=== PATIENT | male | born 1980 | race Caucasian/White ===

== ENCOUNTER 2018-01-04 17:54 | Emergency (ER) | payer BC, SELFPAY ==
[2018-01-04] MEDS ORDERED: FENTANYL CITR 100 MCG/2 ML ONE (18:19)
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
--- NOTE | 2018-01-04 20:34 | RAD REPORT ---
EXAM DESCRIPTION: [place] (2 Views)01/04/2018 6:41 pm CLINICAL HISTORY: Chest pain COMPARISON: None FINDINGS: The lungs appear clear of acute infiltrate. The heart is normal size IMPRESSION: No acute abnormalities displayed
== END 2018-01-04 20:12 | disposition home or self-care (01) ==
LOC: ER 17:54
DX: S40.012A Contusion of left shoulder, initial encounter (principal); V43.52XA Car driver injured in collision with other type car in traffic accident, initial encounter
CPT/HCPCS: 70450; 71046; 72125; 96374; 99285; J3010

== ENCOUNTER 2019-07-12 18:25 | Emergency (ER) | payer BC, SELFPAY ==
[2019-07-12 19:06] LABS: Absolute Lymphocytes (CBC) 2.3 K/uL (0.7-4.9); Basophils % 0.8 % (0-1.3); Hematocrit 45.1 % (39.6-49.0); Lymphocytes % 27.4 % (15.3-44.8); RBC Red Blood Cell Count 5.56 M/uL (4.33-5.43)
--- NOTE | 2019-07-12 19:07 | RAD REPORT ---
EXAM DESCRIPTION: RAD - Chest Single View - 07/12/2019 7:00 pm CLINICAL HISTORY: CHEST PAIN Chest pain. COMPARISON: Chest Pa And Lat (2 Views) dated 01/04/2018 FINDINGS: Portable technique limits examination quality. The lungs are grossly clear. The heart is normal in size. No displaced fractures. IMPRESSION: No acute intrathoracic process suspected.
[2019-07-12 19:08] LABS: Protime INR 1.05
[2019-07-12] MEDS ORDERED: LORazepam 2 MG/ML VIAL ONE (19:15)
[2019-07-12 19:25] LABS: ALT/SGPT 54 U/L (12-78); AST/SGOT 25 U/L (15-37); Albumin 3.9 g/dL (3.4-5.0); Alkaline Phosphatase 86 U/L (45-117); BUN Blood Urea Nitrogen 15 mg/dL (7-18); Bicarbonate 26 mmol/L (21-32); Bilirubin Direct 0.1 mg/dL (0-0.2); Bilirubin Total 0.4 mg/dL (0.2-1.0); Glucose Level 136 mg/dL (74-106); NT PRO-BNP 22 pg/mL (<125); Protein, Total 7.5 g/dL (6.4-8.2); Sodium Level 138 mmol/L (136-145); Troponin (Emerg Dept Use Only) < 0.02 ng/mL (0.0-0.045)
--- NOTE | 2019-07-12 20:43 | EDPHYS ---
Physician Documentation [facility] Name: Antony Holley Age: 39 yrs Sex: Male : 1980 Arrival Date: 07/12/2019 Time: 18:33 Bed 6 Private MD: ED Physician Shahram Mercado HPI: 07/11 19:20 This 39 yrs old Male presents to ER via Ambulatory with complaints of jr8 Breathing Difficulty, Chest Tightness. 19:20 The patient has shortness of breath at rest. Onset: The symptoms/episode began/occurred jr8 acutely, today. Duration: The symptoms are continuous. The patient's shortness of breath has no apparent modifying factors. Associated signs and symptoms: Pertinent positives: chest pain, numbness in extremities. Severity of symptoms: At their worst the symptoms were moderate in the emergency department the symptoms are unchanged. The patient has experienced a previous episode. The patient has not recently seen a physician. Stated that yesterday he had period of shortness of breath, numbness, and chest tightness yesterday. Went away after a few hours. Stated that it happened again today. Stated that he has been on Adderall and wonders if it could be that. Historical: - Allergies: 18:39 No Known Allergies; ss - Home Meds: 18:39 Adderall XR Oral [Active]; ss - PSHx: 18:39 None; ss - Immunization history:: Adult Immunizations up to date. - Social history:: Smoking status: Patient denies any tobacco usage or history of. ROS: 19:20 Eyes: Negative for injury, pain, redness, and discharge, ENT: Negative for injury, jr8 pain, and discharge, Neck: Negative for injury, pain, and swelling, Abdomen/GI: Negative for abdominal pain, nausea, vomiting, diarrhea, and constipation, Back: Negative for injury and pain, MS/Extremity: Negative for injury and deformity, Skin: Negative for injury, rash, and discoloration. 19:20 Cardiovascular: Positive for chest pain, Negative for edema, orthopnea, palpitations, paroxysmal nocturnal dyspnea. 19:20 Respiratory: Positive for shortness of breath. 19:20 Neuro: Positive for numbness, of the right hand, left hand, right foot and left foot. Exam: 19:20 Eyes: Pupils equal round and reactive to light, extra-ocular motions intact. Lids and jr8 lashes normal. Conjunctiva and sclera are non-icteric and not injected. Cornea within normal limits. Periorbital areas with no swelling, redness, or edema. ENT: Nares patent. No nasal discharge, no septal abnormalities noted. Tympanic membranes are normal and external auditory canals are clear. Oropharynx with no redness, swelling, or masses, exudates, or evidence of obstruction, uvula midline. Mucous membranes moist. Neck: Trachea midline, no thyromegaly or masses palpated, and no cervical lymphadenopathy. Supple, full range of motion without nuchal rigidity, or vertebral point tenderness. No Meningismus. Cardiovascular: Regular rate and rhythm with a normal S1 and S2. No gallops, murmurs, or rubs. Normal PMI, no JVD. No pulse deficits. Respiratory: Lungs have equal breath sounds bilaterally, clear to auscultation and percussion. No rales, rhonchi or wheezes noted. No increased work of breathing, no retractions or nasal flaring. Abdomen/GI: Soft, non-tender, with normal bowel sounds. No distension or tympany. No guarding or rebound. No evidence of tenderness throughout. Back: No spinal tenderness. No costovertebral tenderness. Full range of motion. Skin: Warm, dry with normal turgor. Normal color with no rashes, no lesions, and no evidence of cellulitis. MS/ Extremity: Pulses equal, no cyanosis. Neurovascular intact. Full, normal range of motion. Neuro: Awake and alert, GCS 15, oriented to person, place, time, and situation. Cranial nerves II-XII grossly intact. Motor strength 5/5 in all extremities. Sensory grossly intact. Cerebellar exam normal. Normal gait. 19:39 ECG was reviewed by the Attending Physician. jr8 Vital Signs: 18:37 BP 134 / 94; Pulse 97; Resp 20; Temp 97.1(TE); Pulse Ox 100% on R/A; Weight 97.52 kg; ss Height 6 ft. 2 in. (187.96 cm); Pain 4/10; 19:52 BP 127 / 92; Pulse 83; Resp 18; Pulse Ox 100% ; ea 20:30 BP 132 / 91; Pulse 73; Resp 21; Pulse Ox 100% ; ah 18:37 Body Mass Index 27.60 (97.52 kg, 187.96 cm) ss MDM: 18:35 Patient medically screened. 8 20:41 Data reviewed: vital signs, nurses notes, lab test result(s), EKG, radiologic studies, jr8 plain films. Data interpreted: Pulse oximetry: on room air is 100 %. Interpretation: normal. Counseling: I had a detailed discussion with the patient and/or guardian regarding: the historical points, exam findings, and any diagnostic results supporting the discharge/admit diagnosis, lab results, radiology results, the need for outpatient follow up, a family practitioner, to return to the emergency department if symptoms worsen or persist or if there are any questions or concerns that arise at home. Special discussion: Based on the patient's history, exam, and Dx evaluation, there is no indication for emergent intervention or inpatient Tx. It is understood by the patient/guardian that if the Sx's persist or worsen they need to return immediately for re-evaluation. 07/11 18:34 Order name: Basic Metabolic Panel; Complete Time: 19:39 07/11 18:34 Order name: CBC with Diff; Complete Time: 19:16 07/11 18:34 Order name: LFT's; Complete Time: 19:39 07/11 18:34 Order name: Magnesium; Complete Time: 19:39 07/11 18:34 Order name: NT PRO-BNP; Complete Time: 19:39 07/11 18:34 Order name: PT-INR; Complete Time: 19:16 07/11 18:34 Order name: Troponin (emerg Dept Use Only); Complete Time: 19:39 07/11 18:34 Order name: XRAY Chest (1 view); Complete Time: 19:16 07/11 18:34 Order name: EKG; Complete Time: 18:36 07/11 18:34 Order name: Cardiac monitoring; Complete Time: 18:42 07/11 18:34 Order name: EKG - Nurse/Tech; Complete Time: 18:42 07/11 18:34 Order name: IV Saline Lock; Complete Time: 18:49 07/11 20:06 Order name: Troponin (emerg Dept Use Only); Complete Time: 20:41 07/11 18:34 Order name: Labs collected and sent; Complete Time: 18:49 jr8 07/11 18:35 Order name: O2 Per Protocol; Complete Time: 18:42 jr8 07/11 18:35 Order name: O2 Sat Monitoring; Complete Time: 18:42 jr8 EC:39 Rate is 87 beats/min. Rhythm is regular, Normal Sinus Rhythm. QRS [place] is Normal. LA jr8 interval is normal at 128 msec. QRS interval is normal at 88 msec. QT interval is normal at 450 msec. No Q waves. T waves are Normal. No ST changes noted. Clinical impression: Normal ECG. Interpreted by me. Reviewed by me. Administered Medications: 19:15 Drug: Ativan 1 mg Route: IVP; Site: right antecubital; ea 20:15 Follow up: Response: No adverse reaction; Anxiety decreased; RASS: Alert and Calm (0) ah Disposition: 07/12/19 20:42 Discharged to Home. Impression: Shortness of breath, Chest pain, unspecified. - Condition is Stable. - Discharge Instructions: Nonspecific Chest Pain, Shortness of Breath. - Medication Reconciliation Form, Thank You Letter, Antibiotic Education, Prescription Opioid Use form. - Follow up: Private Physician; When: 1 - 2 days; Reason: Recheck today's complaints, Continuance of care, Re-evaluation by your physician. - Problem is new. - Symptoms have improved. Addendum: 07/20/2019 06:52 Co-signature as Attending Physician, Shahram Mercado MD. m a2 Signatures: Dispatcher [employer] EDAZ Loni Lorenzo RN RN ss Roszak, Josh, PA PA jr8 Abby Andrea RN RN ea Alzahri, Mohammad, MD MD id2 Rosemarie Vizcaino RN RN Corrections: (The following items were deleted from the chart) 07/11 20:55 20:42 07/12/2019 20:42 Discharged to Home. Impression: Shortness of breath; Chest pain, ah unspecified. Condition is Stable. Forms are Medication Reconciliation Form, Thank You Letter, Antibiotic Education, Prescription Opioid Use. Follow up: Private Physician; When: 1 - 2 days; Reason: Recheck today's complaints, Continuance of care, Re-evaluation by your physician. Problem is new. Symptoms have improved. jr8
--- NOTE | 2019-07-12 20:43 | ER ---
Nurse's Notes [facility] Name: Antony Holley Age: 39 yrs Sex: Male : 1980 Arrival Date: 07/12/2019 Time: 18:33 Bed 6 Private MD: Diagnosis: Shortness of breath;Chest pain, unspecified Presentation: 07/11 18:37 Chief complaint: Patient states: chest tightness and difficulty breathing that began ss after using cleaning chemicals at work. Denies fever, cough. Coronavirus screen: Patient denies a cough. Patient reports shortness of breath or difficulty breathing. Patient denies measured and/or subjective temperature greater than 100.4F. Patient denies travel on a cruise ship or to a country the [facility] currently lists as an affected area. Patient denies contact with known and/or suspected case of COVID-19. Ebola Screen: Patient denies exposure to infectious person. Patient denies travel to an Ebola-affected area in the 21 days before illness onset. Initial Sepsis Screen: Does the patient meet any 2 criteria? No. Patient's initial sepsis screen is negative. Does the patient have a suspected source of infection? No. Patient's initial sepsis screen is negative. Risk Assessment: Do you want to hurt yourself or someone else? Patient reports no desire to harm self or others. Note Pt also c/o tingling to bilateral hands/ toes. 18:37 Method Of Arrival: Ambulatory ss 18:37 Acuity: RONNA 3 ss Triage Assessment: 20:54 General: Appears uncomfortable. Respiratory: Reports shortness of breath Onset: The ah symptoms/episode began/occurred yesterday, Historical: - Allergies: 18:39 No Known Allergies; ss - Home Meds: 18:39 Adderall XR Oral [Active]; ss - PSHx: 18:39 None; ss - Immunization history:: Adult Immunizations up to date. - Social history:: Smoking status: Patient denies any tobacco usage or history of. Screenin:50 Abuse screen: Denies threats or abuse. Denies injuries from another. Nutritional hb screening: No deficits noted. Tuberculosis screening: No symptoms or risk factors identified. Fall Risk None identified. Assessment: 18:50 General: Appears in no apparent distress. uncomfortable, ill, Behavior is cooperative. hb Pain: Denies pain. Neuro: Level of Consciousness is awake, alert, obeys commands, Oriented to person, place, time, situation. Cardiovascular: Capillary refill < 3 seconds Patient's skin is warm and dry. Rhythm is regular. Respiratory: Airway is patent Respiratory effort is mildly labored Respiratory pattern is regular, symmetrical, Breath sounds are clear bilaterally. GI: No signs and/or symptoms were reported involving the gastrointestinal system. : No signs and/or symptoms were reported regarding the genitourinary system. EENT: No signs and/or symptoms were reported regarding the EENT system. Derm: Skin is pink, warm \T\ dry. Musculoskeletal: No signs and/or symptoms reported regarding the musculoskeletal system. 19:17 General: Appears in no apparent distress. Behavior is cooperative, anxious. Pain: ea Denies pain. Neuro: Level of Consciousness is awake, alert, obeys commands, Oriented to person, place, time, situation. Cardiovascular: Patient's skin is warm and dry. Respiratory: Airway is patent Respiratory effort is even, unlabored, Respiratory pattern is regular, symmetrical. Derm: Skin is pink, warm \T\ dry. 20:30 Reassessment: Patient appears in no apparent distress at this time. Patient and/or ah family updated on plan of care and expected duration. Pain level reassessed. Patient states symptoms have improved. 20:51 Reassessment: Pt given discharge instructions and voiced understanding. Pt states that ah he is following up with his PCP tomorrow. Vital Signs: 18:37 BP 134 / 94; Pulse 97; Resp 20; Temp 97.1(TE); Pulse Ox 100% on R/A; Weight 97.52 kg; Height 6 ft. 2 in. (187.96 cm); Pain 4/10; 19:52 BP 127 / 92; Pulse 83; Resp 18; Pulse Ox 100% ; ea 20:30 BP 132 / 91; Pulse 73; Resp 21; Pulse Ox 100% ; ah 18:37 Body Mass Index 27.60 (97.52 kg, 187.96 cm) ED Course: 18:33 Patient arrived in ED. aa5 18:35 Ian Mendoza PA is PHCP. jr8 18:35 Shahram Mercado MD is Attending Physician. jr8 18:39 Triage completed. 18:39 Arm band placed on right wrist. 18:42 Patient has correct armband on for positive identification. Bed in low position. Call [facility] light in reach. Side rails up X2. hospital monitor on. Pulse ox on. NIBP on. 18:43 EKG done, by ED staff, reviewed by Ian COLEMAN. [facility] 18:45 Initial lab(s) drawn, by ok, sent to lab. Inserted saline lock: 20 gauge in right hb antecubital area, using aseptic technique. 19:01 XRAY Chest (1 view) In Process Unspecified. EDMS 19:17 Abby Andrea, RN is Primary Nurse. ea 20:54 No provider procedures requiring assistance completed. IV discontinued, intact, ah bleeding controlled, No redness/swelling at site. Pressure dressing applied. Administered Medications: 19:15 Drug: Ativan 1 mg Route: IVP; Site: right antecubital; ea 20:15 Follow up: Response: No adverse reaction; Anxiety decreased; RASS: Alert and Calm (0) Outcome: 20:42 Discharge ordered by MD. gamez 20:53 Discharged to home ambulatory. 20:53 Condition: good 20:53 Discharge instructions given to patient, Instructed on discharge instructions, follow up and referral plans. 20:55 Patient left the ED. Signatures: Dispatcher [employer] EDLA Pilar Lopez, RN JOB aa5 Loni Lorenzo RN RN ss Roszak, Josh, PA PA [facility] Eva Sullivan RN RN hb Martinez, Maria [facility] Abby Andrea RN RN ea Harris, Amy, RN RN
[2019-07-12 21:03] VITALS: TEMP 97.1; O2SAT 100
[2019-07-12 21:05] VITALS: BP 132/91
--- NOTE | 2019-07-13 14:38 | EKG ---
Test Date: 2019-07-12 Test Time: 18:39:53 [employer] Manager: MARAÍ MEASUREMENT RESULTS: Intervals: Rate: 87 [place]: 128 QRSD: 88 QT: 374 QTc: 450 [place]: P: 50 AZ: 128 QRS: 58 T: 56 INTERPRETIVE STATEMENTS: Normal sinus rhythm Normal ECG No previous ECG available for comparison Electronically Signed On 07-13-19 14:37:00 CDT by Gustavo Cowart
== END 2019-07-12 20:55 | disposition home or self-care (01) ==
LOC: ER 18:25
DX: R07.9 Chest pain, unspecified (principal)
CPT/HCPCS: 36415; 71045; 80048; 80076; 83735; 83880; 84484; 85025; 85610; 93005; 96374; 99284